=== PATIENT | female | born 1990 | race Caucasian/White ===

== ENCOUNTER 2019-10-04 03:15 | Observation (INO) | payer OTHER, SELFPAY ==
[2019-10-04 04:00] VITALS: BMI 30.8
[2019-10-04 05:46] VITALS: TEMP 36.5
--- NOTE | 2019-10-04 06:12 | OBADM ---
This patient, Tg López, admitted to the OB room Labor/Delivery/Recovery 102 for observation. Patient/family oriented to hospital policies and general routines including ID bracelet, bed and alarms, visiting hours, pain management, procedures, bathroom and other care routines, personal items, smoking policy, room service/diet, and visiting hours. Patient/Family are encouraged to report perceived risks to care and to ask questions if they do not understand what they are told or what they should do.
--- NOTE | 2019-10-10 13:10 | PM.OBTRLD ---
OB - Triage/Final Diagnosis Final Diagnosis (1) False labor: Code(s): O47.9 - False labor, unspecified Status: Acute
== END 2019-10-04 06:06 | disposition home or self-care (01) ==
PROVIDERS: Admitting Provider Obstetrics & Gynecology; Visit Provider Obstetrics & Gynecology
DX: O47.1 False labor at or after 37 completed weeks of gestation (principal); Z3A.37 37 weeks gestation of pregnancy
CPT/HCPCS: G0378; G0379

== ENCOUNTER 2019-10-14 08:27 | Inpatient (IN) | payer OTHER, SELFPAY ==
[2019-10-14] VITALS (108 sets, daily range): BP systolic 99–126; BP diastolic 56–91; PULSE 84–117; RESP 16–18; TEMP 36.5–36.9; O2SAT 97–100; BMI 30.8
[2019-10-14 09:09] LABS: Basophils Percent Auto 0.3 % (0.2-1.2); Eosinophils Percent Auto 0.2 % (0-4.4); Hematocrit 32.9 % (37.0-47.0); Hemoglobin 10.9 g/dL (12.0-15.0); Immature Granulocyte Absolute 0.04 K/mm3 (0.00-0.031); Immature Granulocyte Percent A 0.5 % (0-0.5); Lymphocytes Absolute Auto 1.45 K/mm3 (0.9-3.2); Lymphocytes Percent Auto 16.5 % (18.3-44.2); Mean Corpuscular HGB Conc 33.1 g/dl (32-36); Mean Corpuscular Hemoglobin 24.4 pg (26-34); Mean Corpuscular Volume 73.8 fl (80-100); Mean Platelet Volume 10.2 fl (7.4-10.4); Monocytes Absolute Auto 0.5 K/mm3 (0.1-0.6); Monocytes Percent Auto 5.2 % (2.6-8.5); Neutrophils Absolute Auto 6.8 K/mm3 (1.3-6.7); Neutrophils Percent Auto 77.3 % (45.5-73.1); Platelet Count Result 192 k/mm3 (150-375); Red Blood Count 4.46 M/mm3 (4.2-5.4); Red Cell Distribution Width 14.7 % (11.5-14.5); White Blood Count 8.8 K/mm3 (4.5-10.0)
[2019-10-14] MEDS: LACTATED RINGERS 1,000 ML 125 ML IV CONT ×2 (09:11→09:36)
--- NOTE | 2019-10-14 09:21 | LDADM ---
This patient, Tg López, was admitted to Labor/Delivery/Recovery 105 on 10/14/19 at 08:27 in active labor. Plans for labor, pain management and were discussed with patient. Patient/family oriented to hospital policies and general routines including ID bracelet, bed and alarms, visiting hours, pain management, procedures, bathroom and other care routines, personal items, smoking policy, room service/diet and guest tray routines, security routines, and visiting hours. Patient/Family are encouraged to report perceived risks to care and to ask questions if they do not understand what they are told or what they should do. See OBIX for further documentation.
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
--- NOTE | 2019-10-14 13:21 | WPDOBADMIT ---
Obstetrics - Admit Note Admission Note: record reviewed. Additions to the history and/or subsequent changes in the physical findings follow. 28 y/o at 39 1/7 weeks here with contractions. Labor was diagnosed. She received an epidural. GBS neg. AVSS NST reactive TOCO: contractions every 2-3 min Cervix 9/100/+1. AROM with clear fluid. Progressed to complete dilation A: IUP at term with labor. P: Begin pushing. Anticipate .
--- NOTE | 2019-10-14 13:23 | PM.OBPRVD ---
OB - Delivery Note Procedure Delivery date: 10/14/19 Procedure: Delivery monitor: external FHT and external uterine Route of delivery: Laceration description: None Specimen: Yes (cord blood) Estimated blood loss (mL): 180 Anesthesia type: Epidural Disposition: PACU Complications: Shoulder dystocia Narrative: Twwfxp-[id number]-[id number]-old 2 para 1001 at 39 1/7 weeks gestation who presented to the hospital with complaint of contractions. She received an epidural for pain control. Her labor progressed without stimulation. At the time of my arrival, her cervix was 9 cm dilated. Amniotomy was performed with return of clear fluid. Her cervix dilated completely. She pushed with good effort and delivered the 's head to the perineum in right occiput anterior position. At this point, a shoulder dystocia was diagnosed. Fundal pressure and traction were strictly avoided. Sheldon maneuver was employed. The posterior (right) shoulder was able to be rotated in a counter-clockwise fashion and that right arm was able to be delivered, followed by the left (anterior) shoulder and the body. The the nose and mouth were bulb suctioned. After a delay, the cord was clamped and cut. The infant was handed off the field. Cord blood was collected. The placenta delivered spontaneously and was grossly normal in appearance. The usual 3 vessel cord was noted. The perineum was inspected and found to be without laceration. The cervix was visualized and was also without laceration. Needle and instrument counts were correct. The patient was taken to recovery room in stable condition. The infant went to the nursery in stable condition. I was present and scrubbed for the entire delivery. [place] Baby Date of : 10/14/19 Time of : 13:09 Weeks of gestation at delivery: 39 gender: Female Weight (pounds): 7 Weight (ounces): 14 presentation: vertex Placenta delivery description: Spontaneous cord vessel description: 3 Vessels score one minute: 9 score five minutes: 9
--- NOTE | 2019-10-14 13:30 | PM.OBDSVD ---
DS: Diagnosis Admitting Diagnosis Admitting Diagnosis: Labor at term Discharge Diagnosis (1) Normal delivery at term: Onset Date: 10/14/19 Code(s): O80 - Encounter for full-term uncomplicated delivery Status: Acute OB - DS: Summary OB Procedures : None OB Procedures Intrapartum: Spontaneous Vag Delivery OB Procedures: : None DS: Data Data Completed and Pending Labs on day of discharge: Labs from last 24 hours 10/14/19 10/14/19 10/14/19 09:01 09:01 09:01 WBC 8.8 RBC 4.46 Hgb 10.9 L Hct 32.9 L MCV 73.8 L MCH 24.4 L MCHC 33.1 RDW 14.7 H Plt Count 192 MPV 10.2 Immature Gran % (Auto) 0.5 Neut % (Auto) 77.3 H Lymph % (Auto) 16.5 L [place] % (Auto) 5.2 Eos % (Auto) 0.2 Baso % (Auto) 0.3 Lymph # (Auto) 1.45 [place] # (Auto) 0.5 Eos # (Auto) 0.0 Baso # (Auto) 0.0 Abs Immat Gran (auto) 0.04 H Absolute Neuts (auto) 6.8 H Absolute Nucleated RBC 0.0 Nucleated RBC % 0.0 RPR Pending Blood Type AB Positive Antibody Screen Negative Discharge Plan Discharge Attending physician on discharge: Ranjith Curiel Discharging Clinician: Ranjith Curiel Patient Disposition: Home, Self-Care Activity: pelvic rest Diet: regular Discharge Instructions: Education: Mom and Baby Guide Given to: Mother Follow-Up: Call your delivering provider's office for an appointment to be seen in: 6 Weeks Mom and baby should come to the [facility] for the follow-up appointment. Appointment Date/Time: October 16, 2019 at 11:00 am What to expect at your follow-up visit: Blood Pressure Check Physical Assessment Call [phone] if you are unable to keep your appointment time. BREAST CARE: 1. Wear a snug supportive bra. 2. For engorgement discomfort: Breast Feeding: A. Apply warm moist washcloths B. Express milk as needed to relieve engorgement C. Wear loose clothing 3. For sore nipples: A. Identify correct latch-on B. Apply warm moist washcloths before and after nursing C. Air dry nipples after nursing D. May apply Lansinoh cream to nipples PERINEAL CARE: 1. Until bleeding stops, use your corazon bottle after urinating 2. Change your pad frequently throughout the day 3. You may take sitz baths several times a day (fill your bathtub with warm water and soak for 20 minutes.) Do NOT bathe in the water 4. No tub baths until seen by your physician - You may shower ACTIVITY: 1. Rest as much as possible. 2. Do not exercise or lift anything heavier than your baby (such as laundry or other children.) 3. Avoid stairs or driving as much as possible. 4. Do not put anything into the vagina. No douching, tampons, or sexual activity until seen by physician. NOTIFY PHYSICIAN IF YOU HAVE ANY QUESTIONS OR IF ANY OF THE FOLLOWING SYMPTOMS OCCUR: 1. If your perineum becomes red, swollen, or more painful than what you have experienced in the hospital. 2. If your vaginal bleeding becomes foul smelling. 3. If your vaginal bleeding becomes more heavy than a period or if your bleeding changes from brownish red to bright red. However, you may pass an occasional walnut-sized clot once or twice for the first week . 4. If you experience a sharp, shooting pain in your calves. 5. If you discover a hard, reddened area on your breast or if you experience flu-like symptoms. DIET: 1. Eat regular, well-balanced meals. 2. Drink plenty of fluids daily. If , drink to thirst. Call or return if temperature above 100.4? F, increased abdominal pain, increased vaginal bleeding or any new problems. Stand Alone Forms: General Discharge Information Follow-up/Referrals: Ranjith Curiel MD [Physician] - (6 weeks) Discharge Medications: New ibuprofen 600 mg tablet 600 mg PO Q6H PRN (Reason: pain) Qty: 3
--- NOTE | 2019-10-14 15:25 | PC.NURSE ---
Patient transferred to post room #286 via wheelchair. Support person present. Oriented to unit, room, information board, rooming in, admission packet and security measures. Patient verbalizes understanding.
[2019-10-14] MEDS: IBUPROFEN 600 MG TABLET PO ×2 (17:50→23:57)
[2019-10-14] MEDS: LANOLIN (LANSINOH) 7.5 GM CREAM 1 APPLIC TOPICAL (17:51)
[2019-10-15 07:35] LABS: Rapid Plasma Reagin Non-Reactive (NonReactive)
[2019-10-15 08:00] VITALS: BP 114/67; PULSE 92; RESP 16; TEMP 36.8; O2SAT 98
[2019-10-15] MEDS: MULTIVIT/MIN/PREN/FOL AC/IRON TABLET 1 TAB PO (08:02)
[2019-10-15] MEDS: DOCUSATE SODIUM 100 MG CAPSULE PO (08:02)
[2019-10-15] MEDS: IBUPROFEN 600 MG TABLET PO ×2 (08:03→18:51)
--- NOTE | 2019-10-15 08:46 | PM.OBPNVD ---
OB - PN: Subj Subjective Date/time seen: 10/15/19 08:46 Narrative: Pain OK. . OB - PN: Obj Data Labs CBC & Chem 7: 10/15/19 05:34 Labs: Laboratory Results - last 24 hr 10/14/19 10/14/19 10/14/19 09:01 09:01 09:01 WBC 8.8 RBC 4.46 Hgb 10.9 L Hct 32.9 L MCV 73.8 L MCH 24.4 L MCHC 33.1 RDW 14.7 H Plt Count 192 MPV 10.2 Immature Gran % (Auto) 0.5 Neut % (Auto) 77.3 H Lymph % (Auto) 16.5 L [place] % (Auto) 5.2 Eos % (Auto) 0.2 Baso % (Auto) 0.3 Lymph # (Auto) 1.45 [place] # (Auto) 0.5 Eos # (Auto) 0.0 Baso # (Auto) 0.0 Abs Immat Gran (auto) 0.04 H Absolute Neuts (auto) 6.8 H Absolute Nucleated RBC 0.0 Nucleated RBC % 0.0 RPR Non-reactive Blood Type AB Positive Antibody Screen Negative 10/15/19 05:34 WBC RBC Hgb 10.0 L Hct 31.0 L MCV MCH MCHC RDW Plt Count MPV Immature Gran % (Auto) Neut % (Auto) Lymph % (Auto) [place] % (Auto) Eos % (Auto) Baso % (Auto) Lymph # (Auto) [place] # (Auto) Eos # (Auto) Baso # (Auto) Abs Immat Gran (auto) Absolute Neuts (auto) Absolute Nucleated RBC Nucleated RBC % RPR Blood Type Antibody Screen OB - PN A/P Plan Comments: A: PPD#1, doing well. P: Routine care. Exam Narrative: Exam Narrative: AVSS ABD soft, nontender, fundus firm EXT nontender
--- NOTE | 2019-10-15 09:30 | PC.NURSE ---
Mother called out for observation of feeding. Mother states is eagerly latching without difficulties and minimal discomfort. Reviewed infant feeding cues, frequencies, duration of feedings, feeding elimination flow sheet, and signs of adequate intake. Demonstrated stimulation techniques to wake for feeding. Assisted with to breast. Reviewed positioning/alignment in cross cradle, holding breast in U hold and guided asymmetrical latch on. Discussed rational for each. Infant was able to latch correctly. nursed eagerly, with steady draws and frequent swallowing noted. Reviewed signs of a correct latch, effective nursing and suck swallow ratio. was[able/unable] to maintain latch without discomfort to mother. Nipple care reviewed. Infant will pull back during feeding to shallow latch. Advised to give gentle resistance and not allow pull back. Demonstrated how to adjust latch more deeply while feeding. Instructed mother to call out for RN assistance if she is unable to latch infant for feeding or she has discomfort with nursing. Instructed feeding should be initiated three hours from start of last feeding or if feeding cues are noted before. Mother voiced understanding of information shared.
[2019-10-15 19:12] VITALS: BP 106/70; PULSE 90; RESP 16; TEMP 36.8; O2SAT 100
[2019-10-16] MEDS: IBUPROFEN 600 MG TABLET PO ×2 (01:42→08:53)
[2019-10-16 08:10] VITALS: BP 117/69; PULSE 97; RESP 16; TEMP 36.6; O2SAT 100
[2019-10-16] MEDS: DOCUSATE SODIUM 100 MG CAPSULE PO (08:53)
[2019-10-16] MEDS: MULTIVIT/MIN/PREN/FOL AC/IRON TABLET 1 TAB PO (08:53)
--- NOTE | 2019-10-16 09:12 | PM.OBPNVD ---
OB - PN: Subj Subjective Date/time seen: 10/16/19 09:12 Narrative: Pain OK. Would like to go home. OB - PN: Obj Data Labs CBC & Chem 7: 10/15/19 05:34 OB - PN A/P Plan Comments: A: PPD#2, doing well. P: Home to f/u 6 weeks. Exam Narrative: Exam Narrative: AVSS ABD soft, nontender, fundus firm EXT nontender
[2019-10-17 11:32] VITALS: BP 113/70; PULSE 80; RESP 18; TEMP 36.8
== END 2019-10-16 11:17 | disposition home or self-care (01) | DRG 807 ==
LOC: ANHLDR 13:32 → ANHOB2 15:31
PROVIDERS: Admitting Provider Obstetrics & Gynecology; Visit Provider Obstetrics & Gynecology
DX: O99.62 Diseases of the digestive system complicating childbirth (principal); Z37.0 Single live birth; Z3A.39 39 weeks gestation of pregnancy; K21.9 Gastro-esophageal reflux disease without esophagitis; O66.0 Obstructed labor due to shoulder dystocia; O99.89 Other specified diseases and conditions complicating pregnancy, childbirth and the puerperium; M41.9 Scoliosis, unspecified
CPT/HCPCS: 36415; 85014; 85018; 85025; 86592; 86850; 86900; 86901; A9270; J2590; J2795; J7120

== ENCOUNTER 2020-06-06 13:11 | Emergency (ER) | payer OTHER, SELFPAY ==
[2020-06-06 13:24] VITALS: BP 131/69; PULSE 79; RESP 20; TEMP 37.1; O2SAT 100
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
== END 2020-06-06 13:42 | disposition home or self-care (01) ==
PROVIDERS: Emergency Provider Nurse Practitioner Family
DX: L70.0 Acne vulgaris (principal); K21.9 Gastro-esophageal reflux disease without esophagitis
CPT/HCPCS: 99213; G0463